=== PATIENT | female | born 1995 | race Caucasian/White ===

== ENCOUNTER → 2016-08-04 | Outpatient (CLI) | payer OTHER ==
[~2016-08-04] MED LIST: CIPR1TAB10 PO; DEXTTAB PO; ISOT1CAP PO; PSEUCAP67 PO
--- NOTE | 2016-08-04 14:54 | DIAGNOSTIC IMAGING REPORT ---
RIGHT FOOT MIN 3 VIEWS CLINICAL HISTORY: Right foot pain TRAUMA COMPARISON: None. DISCUSSION: No fractures or dislocations are visualized. There are no erosive or destructive changes. A supplementary sesamoid view was obtained. No sesamoid fractures are evident. IMPRESSION: No fractures identified. Electronically signed by: Sudhir Santos M.D. 08/04/2016 2:53 PM Dictated Date/Time: 08/04/2016 2:52 PM
== END | disposition home or self-care (01) ==
LOC: C.RDSM 14:04
PROVIDERS: ATTEND Family Medicine
DX: M79.671 Pain in right foot (principal)

== ENCOUNTER → 2016-10-06 | Outpatient (CLI) | payer OTHER ==
--- NOTE | 2016-10-06 09:03 | DIAGNOSTIC IMAGING REPORT ---
RIGHT SHOULDER MIN 2 VIEWS CLINICAL HISTORY: Right shoulder pain following injury. COMPARISON: None FINDINGS: A 5 mm sclerotic focus within the acromion favors a bone island. There is no acute fracture or dislocation of the right shoulder. Alignment is anatomic. IMPRESSION: No acute fracture or dislocation of the right shoulder. Electronically signed by: Dwayne Pan M.D. 10/06/2016 9:02 AM Dictated Date/Time: 10/06/2016 9:01 AM
--- NOTE | 2016-10-06 09:04 | DIAGNOSTIC IMAGING REPORT ---
CERVICAL SPINE 4 OR 5 VIEWS CLINICAL HISTORY: Neck pain following injury. COMPARISON STUDY: No previous studies for comparison. FINDINGS: Alignment of the cervical spine is anatomic. Vertebral body heights are maintained. There is no fracture or suspicious lesion. Disc spaces are preserved. There is minimal multilevel endplate irregularity. Facet joints are intact. IMPRESSION: No acute cervical spine fracture or subluxation. Electronically signed by: Dwayne Pan M.D. 10/06/2016 9:03 AM Dictated Date/Time: 10/06/2016 9:02 AM
== END | disposition home or self-care (01) ==
LOC: C.RDSM 08:37
PROVIDERS: ATTEND Family Medicine
DX: M25.511 Pain in right shoulder (principal); M54.2 Cervicalgia

== ENCOUNTER → 2016-11-05 | Outpatient (CLI) | payer OTHER ==
--- NOTE | 2016-11-05 08:41 | DIAGNOSTIC IMAGING REPORT ---
LUMBAR SPINE 5 VIEWS HISTORY: Pain LOWER BACK PAIN COMPARISON: None. FINDINGS: There is no fracture. No subluxation. Disc spaces are preserved. IMPRESSION: No fracture or subluxation within the lumbar spine. Electronically signed by: Tre Pelayo M.D. 11/05/2016 8:40 AM Dictated Date/Time: 11/05/2016 8:39 AM
== END | disposition home or self-care (01) ==
LOC: C.RDSM 12:13
PROVIDERS: ATTEND Family Medicine
DX: M54.5 Low back pain (principal)

== ENCOUNTER → 2016-12-27 | Outpatient (CLI) | payer OTHER ==
--- NOTE | 2016-12-27 18:27 | DIAGNOSTIC IMAGING REPORT ---
BONE SCAN LIMITED (NM) CLINICAL HISTORY: LOW BACK Pain, possible STRESS FRACTURE COMPARISON STUDY: Lumbar spine 11/05/2016. TECHNIQUE: 3 hours following the intravenous administration of 26.8 mCi of technetium 99 MDP, static and SPECT images of the lumbar spine were performed in the anterior, posterior, lateral, and oblique views. FINDINGS: Normal radiotracer uptake seen within the lumbar spine. No evidence for a fracture or spondylolysis. IMPRESSION: Normal radiotracer uptake seen within the lumbar spine. Electronically signed by: Germán Myers M.D. 12/27/2016 6:26 PM Dictated Date/Time: 12/27/2016 6:23 PM
== END | disposition home or self-care (01) ==
LOC: C.NUCL 13:03
PROVIDERS: ATTEND Family Medicine
DX: M54.5 Low back pain (principal)

== ENCOUNTER → 2017-04-08 | Outpatient (CLI) | payer OTHER ==
--- NOTE | 2017-04-08 10:04 | DIAGNOSTIC IMAGING REPORT ---
LUMBAR SPINE W/O CONTRAST CLINICAL HISTORY: 22 years-old Female presenting with BACK PAIN, right-sided low back pain, history of injury 6 months ago. TECHNIQUE: Multisequence, multiplanar MR imaging of the lumbar spine was performed without the use of intravenous contrast. IV contrast: None. COMPARISON: Bone scan from 12/27/2016 and plain radiographs of the lumbar spine from 11/05/2016. FINDINGS: Localizer images: Unremarkable. Normal lumbar lordosis. Vertebral bodies maintain normal height, alignment, bone marrow signal intensity. Mild disc desiccation at L4-5, where there is a disc bulge with a focal paracentral disc protrusion resulting in mild effacement of the anterior thecal sac and right lateral recess to a lesser degree. Mild bilateral neural foraminal narrowing also noted at L4-5, right greater than left. This may exert mass effect on the transiting right L5 nerve root. The remaining levels demonstrate no neural foraminal or spinal canal stenosis. The spinal cord ends in good position at the superior endplate of L1. Cauda equina normal in morphology. Paraspinal musculature normal. Remaining soft tissues normal. IMPRESSION: Disc bulge with focal paracentral disc protrusion at L4-5 resulting in mild effacement of the anterior thecal sac and more significantly effacement of the right lateral recess. This appears to exert mass effect on the transiting right L5 nerve root. Electronically signed by: Sergio Herrera M.D. 04/08/2017 10:03 AM Dictated Date/Time: 04/08/2017 9:59 AM
== END | disposition home or self-care (01) ==
LOC: C.MRI 08:57
PROVIDERS: ATTEND Family Medicine
DX: M25.551 Pain in right hip (principal); M51.26 Other intervertebral disc displacement, lumbar region

== ENCOUNTER → 2017-04-26 | Outpatient (CLI) | payer OTHER | END | disposition home or self-care (01) | LOC: C.RDSM 07:07 | PROVIDERS: ATTEND Orthopaedic Surgery Sports Medicine | DX: M25.571 Pain in right ankle and joints of right foot (principal) ==